=== PATIENT | female | born 1940 | race Caucasian/White ===

== ENCOUNTER 2016-11-28 17:12 | Inpatient (IN) | payer OTHER, MEDICARE ==
--- NOTE | 2016-11-28 17:30 | EDPHY ---
H & P Time Seen by Provider: 11/28/16 17:30 HPI/ROS: CHIEF COMPLAINT: dont feel very good, cough and weakness HISTORY OF PRESENT ILLNESS: This 76-year-old woman presents with her family. Apparently about a week ago she had an upper respiratory infection that was getting better and then 2 days ago she developed a cough. She had intermittent dizziness and lightheadedness and seemed to be doing little bit better this morning drinking coffee and reading. Her daughter found her this afternoon weak and shaky in could not stand up or sit up in the bed without help and a little bit disoriented. Patient says cough is moderate associated with some shortness of breath and some subjective fevers. REVIEW OF SYSTEMS: Eye: no change in vision ENT: Sore throat. Cardiac: no chest pain or syncope but some dizziness Pulmonary: HPI Abdomen: no vomiting, diarrhea, abdominal pain Musculoskeletal: no back pain Skin: no rash Neuro: no headache Constitutional: Fever and chills : no urinary symptoms A comprehensive 10 point review of systems is otherwise negative aside from elements mentioned in the history of present illness. PAST MEDICAL HISTORY: Atrial fibrillation on Pradaxa, macular degeneration, cataract surgery. Social history: Nonsmoker General Appearance: Alert and conversant, cooperative. Eyes: No scleral icterus. ENT, Mouth: Normal mucous membranes. Respiratory: Right lower lung crackles but no wheezing Cardiovascular: Regular rate and rhythm. Occasional extrasystoles Gastrointestinal: Abdomen is soft and non tender. Neurological: Alert and oriented x3. Normally conversant. Face symmetric, normal movement and sensation in all extremities. Skin: Warm and dry, no rashes. Musculoskeletal: No peripheral edema and no joint swelling. Psychiatric: Not agitated. Emergency Department course/MDM: Chest x-ray urinalysis and lab draw. EKG. Pulmonary embolism would be unlikely on Pradaxa. Admission for weakness and hypoxemia, likely viral pulmonary infection. 183: Results discussed, Tamiflu 75 mg orally, no pneumonia, no antibiotics indicated. Nebulized albuterol. 185: Severe sepsis fluid bolus ordered with 2nd lactate. 2nd lactate less than 1. Urinalysis red blood cells but no evidence of UTI. Chemistries normal. Smoking Status: Never smoked Constitutional: Initial Vital Signs Temperature (C) 37.2 C 11/28/16 17:20 Heart Rate 79 11/28/16 17:20 Respiratory Rate 20 11/28/16 17:20 Blood Pressure 142/59 H 11/28/16 17:20 O2 Sat (%) 90 L 11/28/16 17:20 O2 Delivery Mode Nasal Cannula O2 (L/minute) 2 Allergies/Adverse Reactions: brimonidine tartrate [From Alphagan P] Allergy (Verified 11/28/16 17:18) Home Medications: Medication Instructions Recorded Acetaminophen [Tylenol ES 500 mg 500 mg PO BID 11/28/16 (*)] Albuterol [Proventil Inhaler HFA 1 - 2 puffs IH Q4H PRN 11/28/16 (*)] Atorvastatin Calcium [Lipitor 80 80 mg PO HS 11/28/16 mg] Calcium Carbonate [Oyster Shell 1,000 mg PO DAILY 11/28/16 Calcium 500 mg (*)] Carvedilol [Coreg (*)] 6.25 mg PO BIDMEAL 11/28/16 Cholecalciferol Vit D3 [Vitamin D3 1,000 units PO DAILY 11/28/16 (*)] Dabigatran Etexilate Mesyl 150 mg PO BID 11/28/16 [Pradaxa 150 MG (*)] FLUoxetine [Prozac 20 MG (*)] 40 mg PO DAILY 11/28/16 Flecainide Acetate [Tambocor] 100 mg PO BID 11/28/16 Vit A/Vit C/Vit E/Zinc/Copper 1 each PO DAILY 11/28/16 [Preservision Tablet] Medical Decision Making - Diagnostics Imaging: Chest x-ray negative for pneumonia viewed by myself. Differential Diagnosis: Differential for cough considered including but not limited to pneumonia, bronchitis, pulmonary embolism, asthma, CHF. Consult/Admit Bed Type: [place] [id number] - Data Points Laboratory Results: Laboratory Results 11/28/16 17:50 11/28/16 17:50 11/28/16 11/28/16 11/28/16 18:50 18:00 17:50 WBC RBC Hgb Hct MCV MCH MCHC RDW Plt Count MPV Neut % (Auto) Lymph % (Auto) [place] % (Auto) Eos % (Auto) Baso % (Auto) Nucleat RBC Rel Count Absolute Neuts (auto) Absolute Lymphs (auto) Absolute Monos (auto) Absolute Eos (auto) Absolute Basos (auto) Absolute Nucleated RBC Immature Gran % Immature Gran # PT INR APTT VBG Lactic Acid Sodium 135 mEq/L mEq/L (134-144) Potassium 4.0 mEq/L mEq/L (3.5-5.2) Chloride 100 mEq/L mEq/L (97-110) Carbon Dioxide 23 mEq/l mEq/l (22-31) Anion Gap 12 mEq/L mEq/L (8-16) BUN 16 mg/dL mg/dL (7-23) Creatinine 0.8 mg/dL mg/dL (0.6-1.0) Estimated GFR > 60 Glucose 193 mg/dL H mg/dL (70-100) Calcium 9.2 mg/dL mg/dL (8.5-10.4) Total Bilirubin 0.6 mg/dL mg/dL (0.1-1.4) Urine Color YELLOW Urine Appearance HAZY Urine pH 5.0 (5.0-7.5) Ur Specific [place] 1.019 (1.002-1.030) Urine Protein NEGATIVE (NEGATIVE) Urine Ketones 1+ H (NEGATIVE) Urine Blood 1+ H (NEGATIVE) Urine Nitrate NEGATIVE (NEGATIVE) Urine Bilirubin NEGATIVE (NEGATIVE) Urine Urobilinogen NEGATIVE EU EU (0.2-1.0) Ur Leukocyte Esterase NEGATIVE (NEGATIVE) Urine RBC 15-25 /hpf H /hpf (0-3) Urine WBC 1-3 /hpf /hpf (0-3) Ur Epithelial Cells TRACE /lpf /lpf (NONE-1+) Urine Mucus 1+ /lpf /lpf (NONE-1+) Urine Glucose NEGATIVE (NEGATIVE) Influenza Typ A,B (DFA) POSITIVE FOR FLU A H (NEGATIVE) 11/28/16 11/28/16 11/28/16 17:50 17:50 17:50 WBC 4.87 10^3/uL 10^3/uL (3.80-9.50) RBC 4.13 10^6/uL L 10^6/uL (4.18-5.33) Hgb 13.9 g/dL g/dL (12.6-16.3) Hct 41.3 % % (38.0-47.0) MCV 100.0 fL H fL (81.5-99.8) MCH 33.7 pg pg (27.9-34.1) MCHC 33.7 g/dL g/dL (32.4-36.7) RDW 13.1 % % (11.5-15.2) Plt Count 191 10^3/uL 10^3/uL (150-400) MPV 9.0 fL fL (8.7-11.7) Neut % (Auto) 82.0 % H % (39.3-74.2) Lymph % (Auto) 3.9 % L % (15.0-45.0) [place] % (Auto) 13.1 % H % (4.5-13.0) Eos % (Auto) 0.2 % L % (0.6-7.6) Baso % (Auto) 0.4 % % (0.3-1.7) Nucleat RBC Rel Count 0.0 % % (0.0-0.2) Absolute Neuts (auto) 3.99 10^3/uL 10^3/uL (1.70-6.50) Absolute Lymphs (auto) 0.19 10^3/uL L 10^3/uL (1.00-3.00) Absolute Monos (auto) 0.64 10^3/uL 10^3/uL (0.30-0.80) Absolute Eos (auto) 0.01 10^3/uL L 10^3/uL (0.03-0.40) Absolute Basos (auto) 0.02 10^3/uL 10^3/uL (0.02-0.10) Absolute Nucleated RBC 0.00 10^3/uL 10^3/uL (0-0.01) Immature Gran % 0.4 % % (0.0-1.1) Immature Gran # 0.02 10^3/uL 10^3/uL (0.00-0.10) PT 14.8 SEC SEC (12.0-15.0) INR 1.16 (0.83-1.16) APTT 30.3 SEC SEC (23.0-38.0) VBG Lactic Acid 2.7 mmol/L H mmol/L (0.7-2.1) Sodium Potassium Chloride Carbon Dioxide Anion Gap BUN Creatinine Estimated GFR Glucose Calcium Total Bilirubin Urine Color Urine Appearance Urine pH Ur Specific [place] Urine Protein Urine Ketones Urine Blood Urine Nitrate Urine Bilirubin Urine Urobilinogen Ur Leukocyte Esterase Urine RBC Urine WBC Ur Epithelial Cells Urine Mucus Urine Glucose Influenza Typ A,B (DFA) Medications Given: Discontinued Medications Acetaminophen (Tylenol) 650 mg PO EDNOW ONE Stop: 11/28/16 18:50 Last Admin: 11/28/16 19:00 Dose: 650 mg Albuterol (Proventil Neb) 3 ml IH EDNOW ONE Stop: 11/28/16 18:40 Last Admin: 11/28/16 19:02 Dose: 3 ml Sodium Chloride (Ns) 1,000 mls @ 0 mls/hr IV ONCE ONE PRN Reason: Wide Open Stop: 11/28/16 18:06 Last Admin: 11/28/16 18:08 Dose: 1,000 mls Sodium Chloride (Ns) 1,000 mls @ 0 mls/hr IV ONCE ONE PRN Reason: Wide Open Stop: 11/28/16 18:44 Last Admin: 11/28/16 18:44 Dose: 1,000 mls Oseltamivir Phosphate (Tamiflu) 75 mg PO EDNOW ONE Stop: 11/28/16 18:39 Last Admin: 11/28/16 19:15 Dose: 75 mg Sodium Chloride (Ns *For Sepsis Order Set Only*) 2,409 ml 30 ml/kg (2409 ml) IV EDNOW ONE Stop: 11/28/16 18:50 Last Admin: 11/28/16 19:19 Dose: Not Given Departure - Departure Disposition: [facility] Acute Clinical Impression: Influenza A, Hypoxemia Condition: Good
[2016-11-28] MEDS ORDERED: NS 1,000 ML IV ONE ×2 (18:05→18:43)
[2016-11-28 18:07] LABS: % IMMATURE GRANULYOCYTES 0.4 % (0.0-1.1); ABSOLUTE IMMATURE GRANULOCYTES 0.02 10^3/uL (0.00-0.10); ADD DIFF? NO; ADD MORPH? NO; ADD SCAN? NO; ATYPICAL LYMPHOCYTE FLAG 0 (0-99); FRAGMENT RBC FLAG 0 (0-99); HEMATOCRIT 41.3 % (38.0-47.0); HEMOGLOBIN 13.9 g/dL (12.6-16.3); LEFT SHIFT FLG 0 (0-99); LIPEMIA HEMOLYSIS FLAG 80 (0-99); MEAN CELL HEMOGLOBIN 33.7 pg (27.9-34.1); MEAN CELL HEMOGLOBIN CONCENTR. 33.7 g/dL (32.4-36.7); PLATELET CLUMPS FLAG 10 (0-99); PLATELET COUNT 191 10^3/uL (150-400); RED BLOOD CELL COUNT 4.13 10^6/uL (4.18-5.33); RED CELL DISTRIBUTION WIDTH 13.1 % (11.5-15.2)
[2016-11-28 18:15] LABS: INR 1.16 (0.83-1.16); PROTIME(PATIENT) 14.8 SEC (12.0-15.0)
[2016-11-28 18:16] LABS: APTT 30.3 SEC (23.0-38.0)
--- NOTE | 2016-11-28 18:29 | CPEKG ---
Heart Rate: 75 RR Interval: 800 P-R Interval: 172 QRSD Interval: 126 QT Interval: 428 QTC Interval: 479 P [place]: 63 QRS [place]: -36 T Wave [place]: 41 EKG Severity - ABNORMAL ECG - EKG Impression: UNKNOWN RHYTHM, IRREGULAR RATE 57-91 EKG Impression: NONSPECIFIC IVCD WITH LAD Electronically Signed By: Bi Martínez 28-Nov-2016 22:57:15
[2016-11-28 18:32] LABS: ANION GAP 12 mEq/L (8-16); BILIRUBIN,TOTAL 0.6 mg/dL (0.1-1.4); CALCIUM 9.2 mg/dL (8.5-10.4); CARBON DIOXIDE 23 mEq/l (22-31); CHLORIDE 100 mEq/L (97-110); CREATININE 0.8 mg/dL (0.6-1.0); GLOMERULAR FILTRATION RATE > 60; GLUCOSE 193 mg/dL (70-100); SODIUM 135 mEq/L (134-144)
[2016-11-28] MEDS ORDERED: OSELTAMIVIR PHOSPHATE 75 MG CAP PO ONE (18:38)
[2016-11-28] MEDS ORDERED: ALBUTEROL 3 ML DEYVIAL IH ONE (18:39)
[2016-11-28] MEDS ORDERED: ACETAMINOPHEN 325 MG TAB PO ONE (18:49)
[2016-11-28] MEDS ORDERED: NS 1,000 ML BAG *FOR SEPSIS ORDER SET ONLY IV ONE (18:49)
[2016-11-28 19:01] LABS: LACGHOST ORDER
[2016-11-28 19:05] LABS: COLOR YELLOW; LEUKOCYTE ESTERASE,URINE NEGATIVE (NEGATIVE); NITRITE,URINE NEGATIVE (NEGATIVE)
[2016-11-28 19:35] LABS: MUCUS 1+ /lpf (NONE-1+); RBC,URINE 15-25 /hpf (0-3)
[2016-11-28] MEDS ORDERED: ONDANSETRON DISINTEGRATING 4 MG TAB PO PRN (21:51)
[2016-11-28] MEDS ORDERED: ALBUTEROL 3 ML DEYVIAL IH PRN (21:51)
[2016-11-28] MEDS ORDERED: TEMAZEPAM 15 MG CAP PO PRN (21:51)
[2016-11-28] MEDS ORDERED: BENZONATATE 100 MG CAP PO PRN (21:51)
[2016-11-28] MEDS ORDERED: ONDANSETRON 4 MG/2 ML VIAL IVP PRN (21:51)
[2016-11-28] MEDS ORDERED: NON-FORMULARY NEW DRUG (Atorvastatin Calcium [Lipitor 80 Mg] 80 MG) PO SCH (22:00)
--- NOTE | 2016-11-28 22:31 | GHP ---
[f rep st] HISTORY AND PHYSICAL DATE OF ADMISSION: 11/28/2016 CHIEF COMPLAINT: Weakness and cough. HISTORY OF PRESENT ILLNESS: The patient is a 76-year-old female with a history of hypertension, hyp erlipidemia, and atrial fibrillation, who presents to the emergency department with 1 week of upper respiratory symptoms including cough, fever, and shortness of breath. Her condition worsened today when she became much weaker and felt intermittently lightheaded. She was found by her daughter this morning with shaking chills and was unable to ambulate. She was described at that time as being a bit disoriented. She denies chest pain or shortness of breath at this time. In the emergency [facility], workup revealed positive influenza A. She was found to be mildly hypoxemic and was admitted to the hospital for further management. PAST MEDICAL HISTORY: 1. Atrial fibrillation. 2. Chronic anticoagulation. 3. Hypertension. 4. Hyperlipidemia. 5. Macular degeneration. 6. Cataracts. PAST SURGICAL HISTORY: Cataract surgery. MEDICATIONS: Please see [facility] for complete updated outpatient medication list. ALLERGIES: Brimonidine tartrate. FAMILY HISTORY: Reviewed and noncontributory. SOCIAL HISTORY: The patient lives independently with her daughter, who is an MANAGER [employer] physician. She is a lifetime nonsmoker. She denies alcohol or drug use. REVIEW OF SYSTEMS: A 10-point review of systems was performed and is negative except as per HPI. PHYSICAL EXAMINATION: VITAL SIGNS: Temperature on arrival to the emergency department 38.6, blood pressure 121/61, heart rate 74, respiratory rate 25, oxygen saturation 94% on 2 L. GENERAL: The ak tiejose ramon is awake, alert, and oriented, in no acute distress. HEENT: Head is atraumatic, normocephali c. Pupils equal, round, and reactive to light. Extraocular muscles are intact. Oropharynx is varun r. Mucous membranes are moist. NECK: Supple. There is no JVD. HEART: Regular rate and rhythm w ithout murmur. LUNGS: Clear to auscultation bilaterally. ABDOMEN: Soft, nondistended, nontender with normoactive bowel sounds. EXTREMITIES: Trace bilateral lower extremity edema. NEUROLOGIC: G rossly nonfocal. LABORATORY DATA: CBC reveals normal white blood cell count of 4.8. INR is normal at 1.16. Initial lactic acid is elevated at 2.7, repeat lactate after IV fluids is 0.9. Basic metabolic panel is co mpletely normal. Creatinine 0.8, glucose 193. Urinalysis looks negative for infection. She is pos itive for influenza A. ASSESSMENT AND PLAN: The patient is a 76-year-old female with history of atrial fibrillation who pr esents to the emergency department with upper respiratory symptoms, was found to be hypoxemic and po sitive for influenza A. She was admitted to the hospital for further management. 1. Acute hypoxemic respiratory failure secondary to influenza A. The patient will receive supporti ve care with oxygen. She was started on Tamiflu 75 mg p.o. twice daily as well as p.r.n. nebs. She has received aggressive 30 cc/kg fluid bolus in the emergency department with her initial lactic ac id elevation though I suspect this is likely volume depletion as it has normalized with fluids alone . Will continue to monitor her fever curve. Her chest x-ray is negative for pneumonia. 2. Atrial fibrillation. The patient is rate controlled on Coreg. She is anticoagulated on Pradaxa . I am going to continue the Coreg at a lower dose. She has been slightly hypotensive and will put hold parameters on this to hold for SBP less than 110. She has no chest pain or shortness of breat h. 3. Hyperlipidemia. The patient will be continued on her statin. 4. Code status: The patient is full code. 5. Disposition: The patient will be admitted to inpatient status as she will likely require greate r than 48 hours hospitalization for ongoing management of her acute hypoxemic respiratory failure wi associated influenza. /[id number]/MODL
[2016-11-28] MEDS: DABIGATRAN ETEXILATE MESYL 150 MG CAP PO SCH (22:36)
[2016-11-28] MEDS: FLECAINIDE ACETATE 100 MG TAB PO SCH (22:36)
[2016-11-28] MEDS: ATORVASTATIN CALCIUM 40 MG TAB PO SCH (22:36)
[2016-11-29] MEDS ORDERED: CARVEDILOL 6.25 MG TAB PO SCH (08:00)
[2016-11-29] MEDS: FLUoxetine 20 MG CAP PO SCH (09:10)
[2016-11-29] MEDS: CARVEDILOL 3.125 MG TAB PO SCH ×2 (09:11→17:49)
[2016-11-29] MEDS: ACETAMINOPHEN 325 MG TAB PO PRN ×2 (09:11→16:28)
[2016-11-29] MEDS: FLECAINIDE ACETATE 100 MG TAB PO SCH ×2 (09:11→20:08)
[2016-11-29] MEDS: DABIGATRAN ETEXILATE MESYL 150 MG CAP PO SCH ×2 (09:14→20:09)
[2016-11-29] MEDS: OSELTAMIVIR PHOSPHATE 75 MG CAP PO SCH ×2 (09:17→17:49)
--- NOTE | 2016-11-29 15:11 | HOSPPROG ---
Hospitalist Progress Note Assessment/Plan: 76 yo F with hx of htn and a fib pw acute respiratory failure in setting of influenza # acute hypoxic respiratory failure: at baseline uses o2 only at night, currently requiring 2-3L to maintain o2 sats in the low 90s. CXR reviewed and no e/o PNA or pulmonary edema # influenza A: started on tamiflu, monitoring, generalized malaise and aches related to this # hyperglycemia: suspect that this is a stress response, monitoring # chronic medical issues: a fib, hld: continue op meds # dispo: IP status, still requiring o2 and having significant sob with exertion , not safe to dc independently Patient new to my care. Old records reviewed and summarized as above. Subjective: patient continues to have sob with exertion and malaise Objective: Vital Signs Temp Pulse Resp BP Pulse Ox 37.4 C 66 88 H 110/63 95 11/29/16 08:00 11/29/16 08:00 11/29/16 10:08 11/29/16 08:00 11/29/16 08:00 11/28/16 11/29/16 11/30/16 05:59 05:59 05:59 Intake Total 2250 Balance 2250 PT 14.8 SEC (12.0-15.0) 11/28/16 17:50 INR 1.16 (0.83-1.16) 11/28/16 17:50 elderly awake alert anciteric op clear rrr no mrg dec bs at bases soft nt nd no cce warm dry well perfused oriented appropriate ICD10 Worksheet Patient Problems: Problems Problem Status Onset Influenza A Acute Hypoxemia Acute
[2016-11-29] MEDS: ATORVASTATIN CALCIUM 40 MG TAB PO SCH (20:08)
[2016-11-30] MEDS: DABIGATRAN ETEXILATE MESYL 150 MG CAP PO SCH ×2 (08:45→20:29)
[2016-11-30] MEDS: FLUoxetine 20 MG CAP PO SCH (08:45)
[2016-11-30] MEDS: OSELTAMIVIR PHOSPHATE 75 MG CAP PO SCH ×2 (08:45→17:36)
[2016-11-30] MEDS: CARVEDILOL 3.125 MG TAB PO SCH ×2 (08:46→18:00)
[2016-11-30] MEDS: FLECAINIDE ACETATE 100 MG TAB PO SCH ×2 (08:46→20:29)
[2016-11-30] MEDS: ACETAMINOPHEN 325 MG TAB PO PRN ×2 (11:58→20:33)
[2016-11-30] MEDS: IPRATROPIUM/ALBUTEROL 3 ML DEYVIAL IH SCH ×3 (13:12→22:49)
--- NOTE | 2016-11-30 13:50 | HOSPPROG ---
Hospitalist Progress Note Assessment/Plan: 76 yo F with hx of htn and a fib pw acute respiratory failure in setting of influenza # acute hypoxic respiratory failure: at baseline uses o2 only at night, currently requiring 2-3L to maintain o2 sats in the low 90s. CXR reviewed and no e/o PNA # influenza A: on tamiflu, monitoring, generalized malaise and aches related to this # hyperglycemia: suspect that this is a stress response, monitoring # wheezing: ordered duonebs # chronic medical issues: a fib, hld: continue op meds # dispo: IP status, still requiring o2 and having significant sob with exertion , not safe to dc independently Patient new to my care. Old records reviewed and summarized as above. Subjective: Continues to feel weak with significant cough. Having generalized wheezing on expiration. Feels unable to return home at this time not strong enough. Objective: Vital Signs Temp Pulse Resp BP Pulse Ox 37.2 C 54 L 18 97/59 L 92 11/30/16 11:10 11/30/16 13:06 11/30/16 13:06 11/30/16 11:10 11/30/16 13:06 11/29/16 11/30/16 12/01/16 05:59 05:59 05:59 Intake Total 2250 Balance 2250 PT 14.8 SEC (12.0-15.0) 11/28/16 17:50 INR 1.16 (0.83-1.16) 11/28/16 17:50 - Physical Exam Constitutional: appears nourished, not in pain, obese Eyes: PERRL, anicteric sclera, EOMI Ears, Nose, Mouth, Throat: moist mucous membranes, hearing normal, ears appear normal Cardiovascular: No JVD, No tachycardia, No edema Respiratory: no rales or rhonchi, reduced air movement, expiratory wheeze Gastrointestinal: No tenderness, No ascites, No guarding Skin: warm, normal color, No erythema Musculoskeletal: normal joint ROM, no joint effusions, generalized weakness Neurologic: AAOx3 Psychiatric: interacting appropriately, not anxious, not encephalopathic ICD10 Worksheet Patient Problems: Problems Problem Status Onset Influenza A Acute Hypoxemia Acute
[2016-11-30] MEDS: ATORVASTATIN CALCIUM 40 MG TAB PO SCH (20:29)
[2016-12-01] MEDS: IPRATROPIUM/ALBUTEROL 3 ML DEYVIAL IH SCH ×2 (05:14→10:50)
[2016-12-01] MEDS: CARVEDILOL 3.125 MG TAB PO SCH (09:25)
[2016-12-01] MEDS: DABIGATRAN ETEXILATE MESYL 150 MG CAP PO SCH (09:26)
[2016-12-01] MEDS: FLECAINIDE ACETATE 100 MG TAB PO SCH (09:26)
[2016-12-01] MEDS: OSELTAMIVIR PHOSPHATE 75 MG CAP PO SCH (09:26)
[2016-12-01] MEDS: FLUoxetine 20 MG CAP PO SCH (09:27)
[2016-12-01 11:06] VITALS: BP 147/85; TEMP 98.9
[2016-12-01 11:13] VITALS: PULSE 60; RESP 15; O2SAT 94
--- NOTE | 2016-12-01 19:36 | GDS ---
[f rep st] DISCHARGE SUMMARY DISCHARGE DIAGNOSES: 1. Influenza A. 2. Acute hypoxemic respiratory failure. 3. Hyperglycemia. 4. Multiple chronic medical conditions. PHYSICAL EXAM: GENERAL: The patient is alert. VITAL SIGNS: Afebrile at 37.2, pulse is 55, respir atory rate 14, blood pressure is 147/85. She is saturating 97% on room air. I have seen and evalua betty the patient on the day of discharge. HOSPITAL COURSE: The patient is a 76-year-old female who presented to the emergency room with compl aints of shortness of breath. She was evaluated and diagnosed with influenza A. During this hospit alization, she was treated with supportive management including respiratory therapy and treatment. She suffered from acute hypoxemic respiratory failure at the time of admission; however, this has re solved prior to disposition. Her condition is improved. She is feeling significantly better. She is ambulating independently and tolerating a regular diet. She will be discharged home with her critical access hospital independently, with followup in the outpatient setting with her primary care physician. There are no pending studies. DISCHARGE MEDICATIONS: Please refer to EMR form. I have not provided the patient any prescriptions at the time of disposition. I have spent greater than 35 minutes in the care, coordination with Case Management and the disposit ion of this patient, educating her regarding her need to return to the emergency room if her symptom s worsen or she does not continue to improve. /[id number]/MODL
== END 2016-12-01 11:58 | disposition home or self-care (01) | DRG 193 ==
LOC: F3E 21:45
PROVIDERS: ADMIT Hospitalist; ATTEND Internal Medicine
DX: J10.1 Influenza due to other identified influenza virus with other respiratory manifestations (principal); J96.01 Acute respiratory failure with hypoxia; I48.91 Unspecified atrial fibrillation; R73.9 Hyperglycemia, unspecified; Z79.01 Long term (current) use of anticoagulants; I10 Essential (primary) hypertension; E78.5 Hyperlipidemia, unspecified; H35.30 Unspecified macular degeneration
CPT/HCPCS: 97116-GP; 97161-GP; 97165-GO; 97535-GO; G8978-GP-CI; G8979-GP-CI; G8980-GP-CI; G8987-GO-CJ; G8988-GO-CI; G8989-GO-CI